=== PATIENT | male | born 1965 | race Caucasian/White ===

== ENCOUNTER 2025-03-19 07:36 | Outpatient (CLI) | payer BC, SELFPAY | END 2025-03-19 07:37 | disposition home or self-care (01) | LOC: RAD 07:38 | PROVIDERS: PCP Family Medicine; Visit Provider Family Medicine | DX: R01.1 Cardiac murmur, unspecified (principal); I51.7 Cardiomegaly; I34.0 Nonrheumatic mitral (valve) insufficiency | CPT/HCPCS: 93306 ==